=== PATIENT | female | born 1970 | race Caucasian/White ===

== ENCOUNTER 2022-01-08 08:17 | Day surgery (SDC) | payer BC ==
[~2022-01-08 08:17] MED LIST: Sodium Chloride 0.9% 10 ML Syringe FLUSH PRN
[2022-01-08] MEDS ORDERED: Lidocaine 1% PF 2 ML SDV INJECT ONE (08:18)
[2022-01-08] MEDS ORDERED: Propofol 200 MG/20 ML SDV IV ONE (08:18)
[2022-01-08] MEDS: Lactated Ringers 1,000 ML IV SCH (09:30)
[2022-01-08 12:22] VITALS: BP 107/65; PULSE 68
== END 2022-01-08 10:55 | disposition home or self-care (01) ==
LOC: FB.SDS 08:17
PROVIDERS: ATTEND Surgery
DX: Z12.11 Encounter for screening for malignant neoplasm of colon (principal); G43.909 Migraine, unspecified, not intractable, without status migrainosus; Z79.899 Other long term (current) drug therapy; Z98.890 Other specified postprocedural states
CPT/HCPCS: 00812-QZ; 81025; J2704; J7120